=== PATIENT | female | born 2000 | race Two or more races ===

== ENCOUNTER 2020-02-16 02:13 | Emergency (ER) | payer SELFPAY ==
[~2020-02-16] VITALS: Ht 165.1 cm; Wt 77.0 kg
[2020-02-16 02:15] VITALS: BP 136/84
[2020-02-16] MEDS ORDERED: DEXAMETHASONE 1 MG TABLET PO STA (02:47)
[2020-02-16] MEDS ORDERED: DEXAMETHASONE 4 MG TABLET PO STA (02:51)
[2020-02-16 03:09] LABS: BASOPHILS # (AUTO) 0.03 x10^3/uL (0-0.3); BASOPHILS % (AUTO) 0 % (0-1); EOSINOPHILS # (AUTO) 0.26 x10^3/uL (0-0.8); EOSINOPHILS % (AUTO) 3 % (1-7); LYMPHOCYTES # (AUTO) 2.52 x10^3/uL (1-6.1); LYMPHOCYTES % (AUTO) 25 % (22-44); MD NO; MEAN CORPUSCULAR HEMOGLOBIN 30.9 pg (27.0-34.8); MEAN CORPUSCULAR HGB CONC 33.3 g/dL (32.4-35.8); MEAN CORPUSCULAR VOLUME 93.1 fL (80-100); MEAN PLATELET VOLUME 8.3 fL (7.4-10.4); MONOCYTES # (AUTO) 0.84 x10^3/uL (0-1.4); MONOCYTES % (AUTO) 8 % (2-9); NEUTROPHILS % (AUTO) 65 % (42-75); PLATELET COUNT 368 x10^3/uL (130-400); RED BLOOD COUNT 3.85 x10^6/uL (3.82-5.3)
[2020-02-16] MEDS ORDERED: DEXAMETHASONE 4 MG TABLET ONE (03:12)
== END 2020-02-16 03:53 | disposition home or self-care (01) ==
LOC: ED 03:47
DX: R04.0 Epistaxis (principal); J02.8 Acute pharyngitis due to other specified organisms; L04.0 Acute lymphadenitis of face, head and neck; B97.89 Other viral agents as the cause of diseases classified elsewhere
CPT/HCPCS: 36415; 85025; 99283